=== PATIENT | male | born 1975 | race Caucasian/White ===

== ENCOUNTER 2020-06-03 18:12 | Inpatient (IN) | payer BC, SELFPAY ==
[~2020-06-03] VITALS: Ht 175.3 cm; Wt 108.0 kg
[2020-06-03 18:33] VITALS: BP 119/62
--- NOTE | 2020-06-03 18:34 | NUR ---
Patient taken to bed 2 via wheelchair by triage nurse. RN evaluating patient at bedside.
--- NOTE | 2020-06-03 18:44 | NUR ---
45 Y/O M C/C DYSPNEA/DIARREAH SINCE THE May. PER PT DYSPNEA AT REST AND POOR TOLERATNCE TO ACTIVITY. PER PT DAUGHTER TESTED POSITIVE FOR COVID ON THE ; PT TESTED NEGATIVE. PT HAS NOT BEEN TESTED SINCE THEN. PT PRESENTS PALE,DIAPHORETIC,TACHYPNIC,TACHYCARDIC. LABORED BREATHING NOTED ON ASSESSMENT, 94% RA. PLACED IN FULL FOWLERS, OXYGEN 4LPM, 98%. ALLERGIES CODEINE. NO HX. NO RX. NO VOMITING/NAUSEA. SIDE RAIL X1.
--- NOTE | 2020-06-03 18:52 | NUR ---
BLOOD CULUTURES/RAINBOW OBTAINED
--- NOTE | 2020-06-03 18:52 | NUR ---
18G IV RIGHT AC PLACED
[2020-06-03] MEDS ORDERED: ACETAMINOPHEN EXTRA STRENGTH 500 MG TAB PO STA (18:56)
[2020-06-03] MEDS ORDERED: NACL 0.9% 1,000 ML IV STA (18:56)
[2020-06-03 19:16] LABS: BASOPHILS % (AUTO) 0.1 % (0.0-2.0); HEMATOCRIT 50.2 % (36-52); HEMOGLOBIN 17.3 g/dL (12.0-18.0); LYMPHOCYTES # (AUTO) 2.1 K/uL (2.0-11.5); LYMPHOCYTES % (AUTO) 25.1 % (20.5-51.1); MEAN CORPUSCULAR HEMOGLOBIN 31 pg (27-31); MEAN CORPUSCULAR HGB CONC 34 g/dL (33-37); MEAN CORPUSCULAR VOLUME 90.6 fL (80-94); MONOCYTES # (AUTO) 0.6 K/uL (0.8-1.0); MONOCYTES % (AUTO) 7.1 % (1.7-9.3); NEUTROPHILS # (AUTO) 5.6 K/uL (1.8-7.7); NEUTROPHILS % (AUTO) 67.7 % (42.2-75.2); PLATELET COUNT (AUTO) 184 K/uL (140-450); RED BLOOD CELL COUNT(AUTO) 5.55 MIL/uL (4.20-6.10); RED CELL DISTRIBUTION WIDTH 13.3 % (11.6-13.7); WHITE BLOOD COUNT (AUTO) 8.2 K/uL (4.8-10.8)
--- NOTE | 2020-06-03 19:17 | NUR ---
COVID SWAB DONE ; SENT TO LAB
--- NOTE | 2020-06-03 19:18 | NUR ---
JOY PARADA FROM [facility]. WILL CONT CARE AT THIS TIME.
--- NOTE | 2020-06-03 19:18 | NUR ---
REPORT GIVEN TO BILL SIBLEY FOR CONTINUITY OF CARE
[2020-06-03 19:32] LABS: ALBUMIN 3.5 g/dL (3.4-5.0); ANION GAP 20.9 (8-16); CARBON DIOXIDE 20.7 mmol/L (21-32); POTASSIUM 3.6 mmol/L (3.5-5.1); TOTAL BILIRUBIN 0.9 mg/dL (0.0-1.0)
[2020-06-03 19:48] LABS: C-REACTIVE PROTEIN QUANT 10.1 mg/dL (0.0-0.9)
[2020-06-03 19:51] LABS: LACTATE DEHYDROGENASE 272 U/L (85-227)
--- NOTE | 2020-06-03 21:00 | NUR ---
ASKED PT IF ABLE TO GIVE URINE. NO URINE AT THIS TIME.
--- NOTE | 2020-06-03 21:02 | NUR ---
COLLECTED FLU SWAB AND GIVEN TO PHLEB TECH AT THIS TIME.
--- NOTE | 2020-06-03 21:03 | NUR ---
ct angio to the chest with iv contrast consent form signed. recehcked temp; temp is now 100.1 F oral.
--- NOTE | 2020-06-03 21:38 | NUR ---
RSV SWAB COLLECTED AND SENT TO LAB AT THIS TIME.
--- NOTE | 2020-06-03 21:39 | NUR ---
PT TRANSFERRED TO CT VIA W/C.
--- NOTE | 2020-06-03 21:46 | NUR ---
PT RETURNED BACK FROM CT VIA W/C.
[2020-06-03 21:52] LABS: RSV NEGATIVE (NEGATIVE)
--- NOTE | 2020-06-03 22:42 | NUR ---
PT SPO2 96% ON 2.5 L NC.
--- NOTE | 2020-06-04 00:13 | NUR ---
urine collected and given to noa kurtz.
[2020-06-04 00:31] LABS: APPEARANCE,URINE SL CLOUDY (CLEAR); BLOOD, URINE NEGATIVE (NEGATIVE); COLOR,URINE YELLOW (YELLOW); LEUKOCYTE ESTERASE ,URINE NEGATIVE (NEGATIVE); NITRITE, URINE NEGATIVE (NEGATIVE); PH,URINE 6.5 (5.0-9.0); UGLUCOSE NEGATIVE (NEGATIVE)
[2020-06-04 00:43] LABS: BILIRUBIN,URINE NEGATIVE (NEGATIVE)
[2020-06-04] MEDS ORDERED: AZITHROMYCIN 250 MG TAB PO SCH ×2 (00:50→09:00)
[2020-06-04] MEDS ORDERED: NACL 0.9% 1,000 ML IV SCH (01:00)
[2020-06-04] MEDS ORDERED: cefTRIAXone 1,000 MG VIAL ONE (01:04)
[2020-06-04] MEDS ORDERED: AZITHROMYCIN 250 MG TAB ONE (01:04)
--- NOTE | 2020-06-04 01:10 | NUR ---
administered rocephin and zithromax per md order at this time.
--- NOTE | 2020-06-04 01:15 | NUR ---
covid oral swab collected and given to noa kurtz.
[2020-06-04 01:50] VITALS: BP 114/79
--- NOTE | 2020-06-04 01:50 | NUR ---
Patient will be admitted to care of dr. palomo. Admited to tele. Will go to room 116. Belongings list completed. Report to reno hernández.
--- NOTE | 2020-06-04 01:50 | NUR ---
ADMITTED A 45 Y/O MALE FROM ER. CAME BY KELLIE DUE TO HYPOXIA, R/O COVID-19. PT HAS BEEN HAVING SOB FOR SEVERAL DAYS, WITH FEVER AND DIARRHEA. PT HAS HAD CONTACT PREVIOUSLY WITH DAUGHTER WITH + COVID. AWAKE,ALERT AND ORIENTED X4. AMBULATORY, SKIN INTACT. WITH IVF INFUSING WELL ON THE RT AC G#18. CLEAR AND PATENT. PLACED 0N DROPLET PRECAUTIONS/ISOLATION. PT EDUCATED ABOUT TRANSMISSION OF INFECTION. BED ON LOW POSITION. SIDE RAILS UP X2. CALL LIGHT AND URINAL PLACED WITHIN REACH . WILL CONTINUE TO MONITOR.
--- NOTE | 2020-06-04 04:00 | NUR ---
MADE ROUNDS. VITAL SIGNS TAKEN . NO FEVER NOTED.
[2020-06-04 04:12] VITALS: BP 128/81
--- NOTE | 2020-06-04 07:09 | NUR ---
RECEIVED ENDORSEMENT FROM ASSOCIATE MANAGER AFFILIATE MARKETING NURSE, AWAKE. ALERT ORIENTEDX4, BREATHING SPONTANEOUSLY WITH O2 AT 3L/MIN VIA NASAL CANNULA SATURATING AT 96%,NOT IN DISTRESS NOTED. ON DROPLET ISOLATION, DX OF SUSPECTED COVID19. WITH ONGOING IV FLUID 0.9% NS AT 100ML/H INFUSING WELL AT RT AC G18 IV CANNULA NOTED. SAFETY MEASURES IN PLACE AND CONTINUE MONITOR.
[2020-06-04 08:00] VITALS: BP 130/70
[2020-06-04] MEDS ORDERED: DOCUSATE SODIUM 100 MG GELCAP PO PRN (08:00)
[2020-06-04] MEDS ORDERED: ZOLPIDEM 5 MG TAB PO PRN (08:00)
[2020-06-04] MEDS ORDERED: LORazepam 2 MG/ML VIAL IM/IVP PRN (08:00)
[2020-06-04] MEDS ORDERED: ONDANSETRON 4 MG/2 ML VIAL IM/IVP PRN (08:00)
[2020-06-04] MEDS ORDERED: ACETAMINOPHEN 325 MG TAB PO PRN (08:00)
[2020-06-04] MEDS ORDERED: POTASSIUM CHLORIDE 10 MEQ TABER PO PRN (08:05)
[2020-06-04] MEDS ORDERED: MAG SULF 2000 MG/WATER PREMIX 50 ML IV PRN (08:05)
[2020-06-04] MEDS ORDERED: ALBUTEROL HFA MDI 90 MCG/ACTUATION 8 GM INH PRN (08:05)
[2020-06-04] MEDS ORDERED: LOVENOX 1MG/KG Q12H SUBQ SCH (09:00)
[2020-06-04] MEDS: VITAMIN D 400 IU TAB PO SCH (09:14)
[2020-06-04] MEDS: ASCORBIC ACID 500 MG TAB PO SCH (09:15)
[2020-06-04] MEDS: ZINC SULF 220 MG CAP PO SCH ×2 (09:15→20:19)
[2020-06-04] MEDS: ENOXAPARIN 100 MG/ML SYR SUBQ SCH ×2 (09:16→20:21)
[2020-06-04] MEDS: NACL 0.9% 1,000 ML IV SCH (09:21)
--- NOTE | 2020-06-04 09:26 | NUR ---
FULLY AWAKE AND ALERT, DUE MEDICATION GIVEN. SAFETY MEASURES IN PLACE.
[2020-06-04 09:32] LABS: BASOPHILS % (AUTO) 0.1 % (0.0-2.0); HEMATOCRIT 43.5 % (36-52); HEMOGLOBIN 14.8 g/dL (12.0-18.0); LYMPHOCYTES # (AUTO) 0.9 K/uL (2.0-11.5); LYMPHOCYTES % (AUTO) 11.1 % (20.5-51.1); MEAN CORPUSCULAR HEMOGLOBIN 31 pg (27-31); MEAN CORPUSCULAR HGB CONC 34 g/dL (33-37); MEAN CORPUSCULAR VOLUME 91.5 fL (80-94); MONOCYTES # (AUTO) 0.6 K/uL (0.8-1.0); NEUTROPHILS # (AUTO) 6.8 K/uL (1.8-7.7); NEUTROPHILS % (AUTO) 81.8 % (42.2-75.2); PLATELET COUNT (AUTO) 162 K/uL (140-450); RED BLOOD CELL COUNT(AUTO) 4.75 MIL/uL (4.20-6.10); RED CELL DISTRIBUTION WIDTH 13.3 % (11.6-13.7); WHITE BLOOD COUNT (AUTO) 8.3 K/uL (4.8-10.8)
--- NOTE | 2020-06-04 09:32 | NUR ---
PATIENT HAS BEEN SCREENED AND CATEGORIZED HIGH NUTRITION RISK. PATIENT WILL BE SEEN WITHIN 1-2 DAYS OF ADMISSION. 06/04/20-06/05/[address]
[2020-06-04 09:46] LABS: ANION GAP 14.2 (8-16); CARBON DIOXIDE 23.6 mmol/L (21-32); CREATININE 0.8 mg/dL (0.6-1.3); POTASSIUM 3.8 mmol/L (3.5-5.1)
[2020-06-04 09:56] LABS: CHOL/HDL RATIO 4.7 (1-4.5); MAGNESIUM 2.1 mg/dL (1.8-2.4); PHOSPHORUS 2.4 mg/dL (2.5-4.9); THYROID STIMULATING HORMONE 0.59 uIU/mL (0.34-3.74)
--- NOTE | 2020-06-04 11:05 | NUR ---
CATHEAD OPERATOR NOTE: Patient's Orientation Unable To Assess Information Provided By NEO TIKI Comments SW WAS UNABLE TO MEET PATIENT AT BEDSIDE DUE TO MEDICAL CONDITION. Patient Care, Realtionship and Phone Number NEO [employer] DAUGHTER [phone] Healthcare Power of Machine Cutter No Does Patient Have a POLST No Identifying Problems No Social Work Triggers Is A Social Work Consult Needed No Mandate Report Filed No Explanation Of Identifying Problems PATIENT IS A 45-YEAR-OLD MALE ADMITTED FOR HYPOXIA AND SUSPECTED COVID. PATIENT HAS NO SIGNIFICANT PMHX. Admitted From Home Pre-Admission Level Of Functioning Status Independent/Ambulatory Prior Resources/Services Used In Last 12 Months No Prior Resources Used Prior DME No Prior DME Used Living Situation Lives With Family House Patient Had Caregiver No Home Support No Caregiver Issues Financial Issues No Known Financial Issue Referral To The Financial Counselor Needed No Factors/Needs No D/C Needs Identified Pt/Rep Participated In Discharge Plan Yes Patient/Family Agress With Discharge Plan Yes Discharge Plan Comments TENTATIVE DISCHARGE PLAN IS FOR PATIENT TO RETURN HOME. DC Plan Status Initiated
[2020-06-04 12:00] VITALS: BP 117/67
--- NOTE | 2020-06-04 12:06 | NUR ---
VITAL SIGNS TAKEN AND RECORDED, STABLE, NOT IN DISTRESS NOTED.
--- NOTE | 2020-06-04 14:06 | NUR ---
AMBULATORY TO TOILET, VERBALIZED PASSED WATERY SMALL AMOUNT OF STOOL NOTED
[2020-06-04] MEDS ORDERED: POTASSIUM PHOSPHATE 15 MM in NACL 0.9% 250 ML IV SCH (15:30)
[2020-06-04 15:54] LABS: BARBITURATE, URINE NEGATIVE ng/ml (NEG <=200); BENZODIAZEPINE, URINE NEGATIVE ng/mL (NEG <=200); CANNABINOID, URINE NEGATIVE ng/mL (NEG <=50); COCAINE, URINE NEGATIVE ng/mL (NEG <=300); OPIATE, URINE NEGATIVE ng/mL (NEG <=2000); PHENCYCLIDINE SCREEN,URINE NEGATIVE ng/mL (NEG <=25)
--- NOTE | 2020-06-04 15:56 | NUR ---
DC PLANNIN YRS OLD MALE PATIENT WAS ADMITTED FROM HOME WITH A DX OF HYPOXIA SUSPECTED COVID. PT HAS NO MEDICAL HISTORY. PT'S DAUGHTER DIAGNOSED COVID + . RAPID COVID TEST NEGATING THE PCR COVID TEST PENDING. CXR SHOWED NO DEFINITE EVIDENCE OF ACUTE CARDIOPULMONARY DISEASE. CT CHEST NO PE BILATERAL PATCHY CONSOLIDATIONS, FATTY LIVER. STARTED COVID PROTOCOL , CONSULTED WITH ERIKA AND SILVIO . DC PLAN TO GO HOME WHEN STABLE CM TO FOLLOW Addendum: 06/05/20 at 1235 by Danni Jain CM DC PLANNING: SEEN BY SILVIO AND ERIKA THOMPSON CONTINUE COVID PROTOCOL ROCEPHIN ,AZITHROMYCIN IV ABX, O2 3L/NC SATING 98%. CM TO FOLLOW Addendum: 06/07/20 at 1129 by Danni Jain DC PLANNING: PATIENT IS ON ROOM AIR NO DISTRESS NOTED. STABLE FOR DISCHARGE HOME. CM TO FOLLOW
[2020-06-04 16:00] VITALS: BP 120/73
--- NOTE | 2020-06-04 16:03 | NUR ---
PHOSPHORUS -2.4, POTASSIUM PHOSPHATE AT 42.5ML/HOUR STARTED. FULLY AWAKE AND ALERT, PASSED WATERY STOOL IN SMALL AMOUNT VERBALIZED FOR 4TIMES.
--- NOTE | 2020-06-04 16:11 | NUR ---
LABORATORY CALLED, PATIENT IS COVID POSITIVE.
[2020-06-04] MEDS ORDERED: remdesivir COMMUNICATION ORDER 1 EA MISC MC PRN (16:20)
--- NOTE | 2020-06-04 16:23 | NUR ---
DR. LYNN CALLED, MADE AWARE THAT THE PATIENT STILL HAVE WATERY STOOL 4 TIMES AND MADE AWARE THAT THE PATIENT IS COVID POSITIVE. NEW ORDER CARRIED OUT, REMDESIVER AND I UNIT CONVALESCENT PLASMA.
[2020-06-04] MEDS ORDERED: CLINICAL MONITORING MC PRN (16:50)
--- NOTE | 2020-06-04 17:44 | NUR ---
CONSENT FOR BLOOD TRANSFUSION SIGNED BY THE PATIENT.
--- NOTE | 2020-06-04 19:26 | NUR ---
ENDORSED TO HYDROELECTRIC PLANT ELECTRICIAN NURSE FOR CONTINUITY OF CARE IN STABLE CONDITION
--- NOTE | 2020-06-04 19:30 | NUR ---
RECEIVED BEDSIDE SHIFT REPORT FROM DAY SHIFT NURSE. PT AAO4, AMBULATORY, AND ABLE TO MAKE NEEDS KNOWN. PT ON O2 3LPM/NC. PT NOT IN DISTRESS. SKIN IS WARM, DRY, AND INTACT. ABDOMEN IS SOFT AND NON-TENDER. IV ACCESS ON RIGHT AC G18 PATENT AND INTACT, IVF INFUSING WELL. PT DENIES ANY PAIN OR DISCOMFORT AT THIS TIME. NO REQUESTS MADE. POC DISCUSSED, PT VERBALIZED UNDERSTANDING. DROPLET PRECAUTIONS OBSERVED. SAFETY MEASURES IN PLACE. CALL LIGHT WITHIN REACH. WILL CONTINUE TO MONITOR.
[2020-06-04 20:00] VITALS: BP 117/70
--- NOTE | 2020-06-04 20:23 | NUR ---
VITAL SIGNS STABLE. SCHEDULED MEDS GIVEN ORDERED. PT NOT IN DISTRESS. O2 IN PLACE. DENIES ANY PAIN OR DISCOMFORT AT THIS TIME. NO REQUESTS MADE. SAFETY MEASURES IN PLACE. CALL LIGHT WITHIN REACH. WILL CONTINUE TO MONITOR.
[2020-06-04] MEDS ORDERED: REMDESIVIR (EUA) 200 MG in NACL 0.9% 100 ML IV SCH (22:00)
--- NOTE | 2020-06-04 22:24 | NUR ---
PT IN PRONE POSITION. O2 IN PLACE. O2 SAT 97%. SCHEDULED MEDICATION GIVEN ORDERED. PT NOT IN DISTRESS. NO COMPLAINTS MADE. SAFETY MEASURES IN PLACE. CALL LIGHT WITHIN REACH. WILL CONTINUE TO MONITOR.
[2020-06-05] VITALS: BP 130/71
--- NOTE | 2020-06-05 00:15 | NUR ---
VITAL SIGNS STABLE. PT NOT IN DISTRESS. O2 IN PLACE. PT DENIES ANY PAIN OR DISCOMFORT. PT KEPT COMFORTABLE. SAFETY MEASURES IN PLACE. CALL LIGHT WITHIN REACH. WILL CONTINUE TO MONITOR.
[2020-06-05] MEDS: NACL 0.9% 1,000 ML IV SCH ×2 (00:39→16:52)
--- NOTE | 2020-06-05 01:57 | NUR ---
ROUNDS MADE. PT ASLEEP ON PRONE POSITION. O2 IN PLACE. VISIBLE CHEST RISE AND FALL NOTED. PT KEPT COMFORTABLE. SAFETY MEASURES IN PLACE. CALL LIGHT WITHIN REACH. WILL CONTINUE TO MONITOR.
[2020-06-05 04:00] VITALS: BP 118/71
--- NOTE | 2020-06-05 04:37 | NUR ---
VITAL SIGNS STABLE. PT IN BED RESTING. O2 IN PLACE. PT NOT IN DISTRESS. O2 SAT 96%. PT DENIES ANY PAIN OR DISCOMFORT. NO REQUESTS MADE. PT KEPT COMFORTABLE. SAFETY MEASURES IN PLACE. CALL LIGHT WITHIN REACH. WILL CONTINUE TO MONITOR.
[2020-06-05 07:04] LABS: ALBUMIN 2.8 g/dL (3.4-5.0); CARBON DIOXIDE 23.4 mmol/L (21-32); CREATININE 0.8 mg/dL (0.6-1.3); POTASSIUM 4.4 mmol/L (3.5-5.1); TOTAL BILIRUBIN 0.6 mg/dL (0.0-1.0)
--- NOTE | 2020-06-05 07:17 | NUR ---
GAVE BEDSIDE SHIFT REPORT TO DAY SHIFT NURSE. PATIENT IN STABLE CONDITION.
--- NOTE | 2020-06-05 07:20 | NUR ---
RECEIVED REPORT FROM NIGHT NURSE PT IS AAOX4, AMBULATORY ON REGULAR DIET SKIN IS INTACT AND IV SITES ON RIGHT AC INTACT AND PATENT. SAFETY MEASURES IN PLACE AND CALL LIGHT WITHIN REACH.WILL CONTINUE TO MONITOR.
[2020-06-05 08:00] VITALS: BP 129/83
[2020-06-05] MEDS: VITAMIN D 400 IU TAB PO SCH (08:13)
[2020-06-05] MEDS: ASCORBIC ACID 500 MG TAB PO SCH (08:14)
[2020-06-05] MEDS: ZINC SULF 220 MG CAP PO SCH ×2 (08:14→21:49)
--- NOTE | 2020-06-05 08:20 | NUR ---
MEDICATIONS DUE GIVEN AND CHECK VITAL SIGNS PRIOR TO MEDICATIONS, BP 129/83 W[place] 87. PATIENT FEELS TIRED AND COMPLAINS OF CHEST PAIN AFTER GOING TO THE BATHROOM. INSTRUCTED TO DO DEEP BREATHING AND TO REST AND PT VERBALIZES UNDERSTANDING AND RELIEF. HE IS STABLE, ABLE TO SLEEP WELL AND EATING COMFORTABLE. DENIES PAIN. SAFETY MEASURES IN PLACE AND CALL LIGHT WITHIN REACH. WILL CONTINUE TO MONITOR.
[2020-06-05] MEDS: ENOXAPARIN 100 MG/ML SYR SUBQ SCH ×2 (08:29→21:50)
[2020-06-05 09:06] LABS: T4 (THYROXINE) 12.7 ug/dL (4.5-12.0)
--- NOTE | 2020-06-05 11:00 | NUR ---
MADE ROUNDS AT THIS TIME PT IS SITTING AND STABLE, NO DISTRESS NOTED DENIES PAIN. WILL CONTINUE TO MONITOR.
[2020-06-05 12:00] VITALS: BP 125/77
--- NOTE | 2020-06-05 12:00 | NUR ---
CHECKED VITAL SIGNS AT THIS TIME PT VERBALIZES THAT NO APPETITE AND NOT ABLE TO FINISH FOOD. PT IS STABLE AND FEELS BETTER
[2020-06-05 16:00] VITALS: BP 120/80
--- NOTE | 2020-06-05 16:15 | NUR ---
06/05/20 RD INITIAL ASSESSMENT COMPLETED PLEASE REFER TO NUTRITION ASSESSMENT UNDER CARE ACTIVITY FOR ESTIMATED NUTRITIONAL NEEDS. 1. CONTINUE REGULAR DIET TOLERATED 2. CONTINUE ENSURE BID 3. PATIENT ENCOURAGED TO INCREASE PO INTAKE 4. RD TO FOLLOW-UP 3-5 DAYS, MODERATE RISK ALEXANDRE COHEN, MIRA
--- NOTE | 2020-06-05 16:50 | NUR ---
CHANGED IV FLUIDS NS 1000 ML AT A RATE [id number]. PT IS STABLE WILL CONTINUE TO MONITOR.
--- NOTE | 2020-06-05 19:17 | NUR ---
ENDORSED TO NIGHT NURSE FOR CONTINUITY OF CARE. PT IS STABLE
--- NOTE | 2020-06-05 19:25 | NUR ---
RECEIVED REPORT FROM AM NURSE. PT IS A/OX4, ROMANIAN SPEAKING. PT IS ON ROOM AIR, RESPIRATIONS EVEN AND UNLABORED. SKIN IS WARM, DRY, AND INTACT. DISCUSSED POC WITH PATIENT. EDUCATION GIVEN ABOUT PLASMA. PT VERBALIZED UNDERSTANDING. SAFETY PRECAUTIONS IN PLACE. CALL LIGHT WITHIN REACH. WILL CONTINUE TO MONITOR.
[2020-06-05 20:00] VITALS: BP 122/81
--- NOTE | 2020-06-05 21:09 | NUR ---
RECEIVED PT FROM AM SHIFT. FOUND PT ON 3L NC WITH SPO2 OF 98%. TITRATED PT TO ROOM AIR WITH SPO2 OF 93%. PT IS NO APPARENT RESPIRATORY DISTRESS AT THIS TIME. CLEAR BS ON AUSCULTATION. WILL CONTINUE TO MONITOR PT.
--- NOTE | 2020-06-05 21:15 | NUR ---
RT AT BEDSIDE AND TITRATED 02 TO 3L. PT SATURATING ATG 93%. ADMINISTERED SCHEDULED MEDICATION. EDUCATION GIVEN. PATIENT TOLERATED WELL. WILL CONTINUE TO MONITOR. Addendum: 06/06/20 at 0229 by Isreal Perera RN WRONG NOTE, PATIENT IS ON ROOM AIR.
[2020-06-05] MEDS: REMDESIVIR (EUA) 100 MG in NACL 0.9% 100 ML IV SCH (21:50)
[2020-06-06] VITALS: BP 128/70
--- NOTE | 2020-06-06 00:25 | NUR ---
PLASAM INFUSION INITIATED AT THIS TIME. VITALS ARE WITHIN NORMAL LIMITS. WILL CONTINUE TO MONITOR.
--- NOTE | 2020-06-06 02:29 | NUR ---
PLASMA INFUSION DONE. PATIENT TOLERATED WELL. VITALS ARE STABLE AND WITHIN NORMAL LIMITS. WILL CONTINUE TO MONITOR.
[2020-06-06 04:00] VITALS: BP 120/70
--- NOTE | 2020-06-06 05:31 | NUR ---
PATIENT IS SLEEPING. VISIBLE CHEST RISE NOTED. WILL CONTINUE TO MONITOR.
[2020-06-06 07:02] LABS: ALBUMIN 2.8 g/dL (3.4-5.0); ANION GAP 15.3 (8-16); CARBON DIOXIDE 23.9 mmol/L (21-32); CREATININE 0.8 mg/dL (0.6-1.3); POTASSIUM 4.2 mmol/L (3.5-5.1); TOTAL BILIRUBIN 0.6 mg/dL (0.0-1.0)
--- NOTE | 2020-06-06 07:20 | NUR ---
RECEIVED REPORT FROM NIGHT NURSE FOR CONTINUITY OF CARE, PT IS STABLE, NO SIGNS OF DISTRESS NOTED, RESPIRATIONS ARE EVEN AND UNLABORED ON ROOM AIR, PT HAS RA 18G INFUSING NS AT 125ML/H, SKIN INTACT, BED IN LOW POSITION, SAFETY MEASURES IN PLACE, CALL LIGHT WITHIN REACH, WILL CONTINUE TO MONITOR.
--- NOTE | 2020-06-06 07:35 | NUR ---
ENDORSED CARE TO AM NURSE. PATIENT IS IN STABLE CONDITION.
[2020-06-06 08:00] VITALS: BP 131/76
[2020-06-06] MEDS: ZINC SULF 220 MG CAP PO SCH ×2 (08:29→21:35)
[2020-06-06] MEDS: VITAMIN D 400 IU TAB PO SCH (08:30)
[2020-06-06] MEDS: ASCORBIC ACID 500 MG TAB PO SCH (08:30)
[2020-06-06] MEDS: NACL 0.9% 1,000 ML IV SCH (08:31)
--- NOTE | 2020-06-06 08:37 | NUR ---
ADMINISTERED SCHEDULED MEDICATION, MEDICATION EDUCATION GIVEN, PT NODDED UNDERSTANDING, PT TOLERATED WELL, PT IS STABLE, O2 SATS AT 95, NO SIGNS OF DISTRESS NOTED, CALL LIGHT WITHIN REACH, WILL CONTINUE TO MONITOR.
--- NOTE | 2020-06-06 08:43 | NUR ---
NOTIFIED DR BYRNES PT DOES NOT HAVE A CURRENT PLATELET COUNT, PT IS DUE TO RECEIVED LOVENOX AND ASK IF IT WAS OKAY TO GIVE WITH 06/04 PLATELET COUNT, RECEIVED AND ORDER TO ORDER CBC AND BMP AND ADMINISTERED LOVENOX ACCORDING TO PLATELET COUNT. WILL INPUT ORDERS AND CARRY THEM OUT.
[2020-06-06 09:42] LABS: BASOPHILS % (AUTO) 0.2 % (0.0-2.0); HEMATOCRIT 44.8 % (36-52); LYMPHOCYTES # (AUTO) 1.1 K/uL (2.0-11.5); LYMPHOCYTES % (AUTO) 12.9 % (20.5-51.1); MEAN CORPUSCULAR HEMOGLOBIN 31 pg (27-31); MEAN CORPUSCULAR HGB CONC 34 g/dL (33-37); MEAN CORPUSCULAR VOLUME 91.6 fL (80-94); MONOCYTES # (AUTO) 0.8 K/uL (0.8-1.0); NEUTROPHILS # (AUTO) 6.5 K/uL (1.8-7.7); NEUTROPHILS % (AUTO) 76.9 % (42.2-75.2); PLATELET COUNT (AUTO) 228 K/uL (140-450); RED BLOOD CELL COUNT(AUTO) 4.88 MIL/uL (4.20-6.10); RED CELL DISTRIBUTION WIDTH 13.5 % (11.6-13.7); WHITE BLOOD COUNT (AUTO) 8.4 K/uL (4.8-10.8)
[2020-06-06] MEDS: ENOXAPARIN 100 MG/ML SYR SUBQ SCH ×2 (09:49→21:47)
[2020-06-06 09:50] LABS: ANION GAP 14.8 (8-16); CARBON DIOXIDE 25.1 mmol/L (21-32); CREATININE 0.8 mg/dL (0.6-1.3); POTASSIUM 3.9 mmol/L (3.5-5.1)
--- NOTE | 2020-06-06 09:53 | NUR ---
ADMINISTERED SCHEDULED MEDICATION, MEDICATION EDUCATION GIVEN, PT VERBALIZED UNDERSTANDING, PT TOLERATED WELL, PT IS STABLE. RECEIVED ORDERS FROM DR BYRNES FOR ROBITUSSIN 200MG Q6H PRN, AND CEPACOL Q2 PRN. WILL INPUT ORDER.
[2020-06-06] MEDS ORDERED: guaiFENesin 20 MG/ML UDC PO PRN (09:55)
[2020-06-06] MEDS ORDERED: BENZOCAINE/MENTHOL 1 LOZ MM PRN (09:55)
--- NOTE | 2020-06-06 11:35 | NUR ---
PT SITTING IN BED WATCHING TV, NO SIGNS OF DISTRESS NOTED, RESPIRATIONS ARE EVEN AND UNLABORED ON ROOM AIR, CALL LIGHT WITHIN REACH
[2020-06-06 12:00] VITALS: BP 138/84
--- NOTE | 2020-06-06 13:00 | NUR ---
PT RESTING IN BED, NO SIGNS OF DISTRESS, RESPIRATIONS ARE EVEN AND UNLABORED ON ROOM AIR, CALL LIGHT WITHIN REACH.
--- NOTE | 2020-06-06 15:49 | NUR ---
PT RESTING IN BED, ALL NEEDS MET, NO SIGNS OF DISTRESS NOTED, CALL LIGHT WITHIN REACH.
[2020-06-06 16:00] VITALS: BP 128/70
--- NOTE | 2020-06-06 17:00 | NUR ---
PT AMBULATING OUT OF THE BATHROOM TO BED, PT IS STABLE, NO SIGNS OF DISTRESS NOTED, CALL LIGHT WITHIN REACH
--- NOTE | 2020-06-06 19:20 | NUR ---
ENDORSE PT TO NIGHT NURSE FOR CONTINUITY OF CARE, PT IS STABLE
--- NOTE | 2020-06-06 19:25 | NUR ---
RECEIVED REPORT FROM AM NURSE. PATIENT IS SITTING IN BED WATCHING. RESPIRATIONS ARE EVEN AND UNLABORED, SATURATING 93% ON ROOM AIR. PATIENT IS A/O X4, ABLE TO MADE NEEDS KNOWN. SKIN IS WARM, DRY, AND INTACT. 18G IV ON RIGHT FOREARM NOTED, PATENT, ASYMPTOMATIC, INTACT, INFUSING NS AT 60ML/HR. ALL STAFF TO OBSERVE ISOLATION PRECAUTION. SAFETY MEASURE IN PLACE. CALL LIGHT WITHIN REACH. WILL CONTINUE TO MONITOR.
[2020-06-06 20:00] VITALS: BP 153/83
--- NOTE | 2020-06-06 21:06 | NUR ---
ADMINISTERED SCHEDULED MEDICATION. EDUCATION WAS GIVEN. PATIENT TOLERATED IT WELL. WILL CONTINUE TO MONITOR.
[2020-06-06] MEDS: REMDESIVIR (EUA) 100 MG in NACL 0.9% 100 ML IV SCH (21:35)
--- NOTE | 2020-06-06 23:22 | NUR ---
PATIENT IS WATCHING TV. RESPIRATIONS EVEN AND UNLABORED. WILL CONTINUE TO MONITOR.
[2020-06-07] VITALS: BP 121/70
--- NOTE | 2020-06-07 00:56 | NUR ---
RT AT BEDSIDE TO CHECK ON PATIENT. PATIENT IS SLEEPING. RESPIRATIONS ARE SPONTANEOUS, REGULAR, AND UNLABORED. WILL CONTINUE TO MONITOR.
[2020-06-07] MEDS: NACL 0.9% 1,000 ML IV SCH (03:24)
--- NOTE | 2020-06-07 03:28 | NUR ---
PATIENT IS SLEEPING. NO SIGNS OF DISTRESS AT THIS TIME. WILL CONTINUE TO MONITOR.
[2020-06-07 04:00] VITALS: BP 129/74
--- NOTE | 2020-06-07 05:21 | NUR ---
PATIENT IS SLEEPING. BREATHING SPONTANEOUSLY, EVEN, AND UNLABORED. WILL CONTINUE TO MONITOR.
--- NOTE | 2020-06-07 07:10 | NUR ---
ENDORSED TO AM NURSE. PT IS IN STABLE CONDITION.
--- NOTE | 2020-06-07 07:15 | NUR ---
RECEIVED PATIENT FROM NIGHT NURSE. PATIENT IS AWAKE ALERT AND ORIENTED X4. RESP EVEN AND UNLABORED ON ROOM AIR. DENIES OF PAIN AT THIS TIME. PLAN OF CARE DISCUSSED WITH PATIENT. PATIENT VERBALIZED UNDERSTANDING. BED IN LOW POSITION, CALL LIGHT WITHIN REACH. WILL CONTINUE TO MONITOR.
[2020-06-07 07:27] LABS: ALBUMIN 2.9 g/dL (3.4-5.0); CARBON DIOXIDE 25.2 mmol/L (21-32); CREATININE 0.7 mg/dL (0.6-1.3); POTASSIUM 4.2 mmol/L (3.5-5.1); TOTAL BILIRUBIN 0.7 mg/dL (0.0-1.0)
[2020-06-07 08:00] VITALS: BP 130/84
[2020-06-07] MEDS: ENOXAPARIN 100 MG/ML SYR SUBQ SCH (10:07)
[2020-06-07] MEDS: ASCORBIC ACID 500 MG TAB PO SCH (10:08)
[2020-06-07] MEDS: ZINC SULF 220 MG CAP PO SCH (10:08)
[2020-06-07] MEDS: VITAMIN D 400 IU TAB PO SCH (10:09)
--- NOTE | 2020-06-07 10:32 | NUR ---
MORNING ROUTINE MEDICATIONS GIVEN. PATIENT TOLERATED WELL. LAC IV INTACT AND PATENT WITH NS 60ML/HR. RESP EVEN AND UNLABORED ON ROOM AIR. DENIES OF PAIN AT THIS TIME. PATIENT IS COMFORTABLE IN BED WATCHING TV. CALL LIGHT WITHIN REACH. WILL CONTINUE TO MONITOR.
[2020-06-07] MEDS ORDERED: DEC4 PO (10:42)
[2020-06-07] MEDS ORDERED: AZIT250T3 PO (10:42)
[2020-06-07] MEDS ORDERED: ASPI-1205 PO (10:42)
[2020-06-07 12:00] VITALS: BP 113/72
--- NOTE | 2020-06-07 13:38 | NUR ---
PATIENT IS SITTING UP COMFORTABLE IN BED WATCHING TV. RESP EVEN AND UNLABORED ON ROOM AIR. DENIES OF PAIN AT THIS TIME. CALL LIGHT WITHIN REACH. WILL CONTINUE TO MONITOR.
[2020-06-07 13:44] VITALS: BP 113/72
--- NOTE | 2020-06-07 14:28 | NUR ---
PATIENT IS DISCHARGED HOME WITH FAMILY VIA PRIVATE VEHICLE. PATIENT LEFT WITH ALL PERSONAL BELONGINGS. PATIENT LEFT IN STABLE CONDITION. DISCHARGE INSTRUCTIONS GIVEN FOR COVID ISOLATION. PATIENT VERBALIZED UNDERSTANDING.
== END 2020-06-07 14:25 | disposition home or self-care (01) | DRG 177 ==
LOC: MED 18:12 → MTU 06-04 00:55
PROC: XW033E5 Introduction of Remdesivir Anti-infective into Peripheral Vein, Percutaneous Approach, New Technology Group 5 (ICD-10-PCS; principal; 2020-06-04)
PROC: XW13325 Transfusion of Convalescent Plasma (Nonautologous) into Peripheral Vein, Percutaneous Approach, New Technology Group 5 (ICD-10-PCS; 2020-06-05)
DX: U07.1 COVID-19 (principal); J12.89 Other viral pneumonia; J96.01 Acute respiratory failure with hypoxia; E44.0 Moderate protein-calorie malnutrition; R74.0 Nonspecific elevation of levels of transaminase and lactic acid dehydrogenase [LDH]; E89.0 Postprocedural hypothyroidism; E78.5 Hyperlipidemia, unspecified; E83.39 Other disorders of phosphorus metabolism; Z88.5 Allergy status to narcotic agent; Z68.35 Body mass index [BMI] 35.0-35.9, adult
CPT/HCPCS: 36415; 71045; 71275; 80048; 80053; 80305; 81003; 82150; 82550; 82728; 83036; 83605; 83615; 83690; 83735; 83880; 84100; 84134; 84436; 84443; 84484; 85025; 85379; 85384; 85610; 85651; 85730; 86140; 86886; 86900; 86901; 87040; 87081; 87086; 87420; 87804; 93005; 96361; 96365; 97116; 97161-GP; 99285; J0696; J1650; J7030; J7060; P9017; Q0092; Q9967; U0003-CS